=== PATIENT | female | born 1970 | race Caucasian/White ===

== ENCOUNTER 2021-11-16 08:48 | Outpatient (REF) | payer BC, SELFPAY ==
[2021-11-16 10:19] LABS: Binax Internal Control QC Valid; Binax Now Covid-19 Ag Positive (Negative)
== END 2021-11-16 08:49 | disposition home or self-care (01) ==
LOC: HO.LAB 08:48
PROVIDERS: Visit Provider Internal Medicine
DX: Z20.822 Contact with and (suspected) exposure to COVID-19 (principal)
CPT/HCPCS: 36415; C9803

== ENCOUNTER → 2023-08-27 08:01 | Outpatient (BNVA) | payer BC, SELFPAY | PROVIDERS: Visit Provider Physician Assistant Surgical ==

== ENCOUNTER 2023-10-10 14:18 | Outpatient (AMB) | payer BC, SELFPAY ==
--- NOTE | 2023-10-10 14:22 | A.OFFVIS_ITS ---
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 She has a hx of LSG by Dr. James in May 2011. She did develop a postoperative leak requiring readmission to the hospital for approximately 1 week however did not require further intervention. She had persistent reflux and after several endoscopies was found to have a hiatal hernia which was repaired laparoscopically in March of 2022, also by Dr. James. She states that her weight at the time of beginning the [facility] weight Loss program was approximally 235 lb. Operative weight was 225 lb. And she states her lowest weight was 198 lb. Her goal is to lose weight and achieve a healthy lifestyle as well as to improve, if not resolve, obesity related medical conditions, including HLD. She reports first being concerned about her weight 22 years ago, highest weight to date was 235. Current weight is 213.8 pounds with a BMI of 36.7. She has tried multiple methods of weight loss including previous surgery without permanent results. She lives with her daughter. 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 She wakes at:?7 am, and goes to bed at?10 pm or MN if working her second job. Dinner is at meal between 1-4 pm. Breakfast: refresher drink from DD or cereal w fairlife milk, or yogurt AM snack: skip Lunch: yogurt or cereal or SF jello pudding, or RTD 30 gm fairlife shake PM snack: skip Dinner: toast w butter, After dinner: skip Other snacks: cookies candy, chips Liquids: 16 oz water, 12 coke daily, no juice Alcohol/marijuana/tobacco intake: no etoh, no cannabis, no tobacco Exercise: none, no gym membership Treadmill at home. GERD score: 7 LV score: 1 ESS score: 14 QOL score: 77 PFSH Surgical History Hx of colonoscopy History of medial meniscus repair of right knee Hx of hernia repair Hx of laparoscopic partial gastrectomy Family History Mother Colon cancer Father No problems noted. Son No problems noted. Son No problems noted. Daughter No problems noted. Social History Alcohol intake: never Patient Tobacco Use Status: Never used Tobacco Review of Systems Const All systems reviewed & are unremarkable except as noted in HPI and below Physical Exam Const General: cooperative, healthy appearing and no acute distress Orientation/consciousness: patient oriented x3 HEENT Head: Yes normal to inspection Ears: hearing grossly normal bilaterally General nose exam: Normal external nose present Face and sinus: Yes normal facial exam Eyes General: appearance normal, both eyes and all related structures Resp Effort & Inspection: normal respiratory effort Auscultation: clear to auscultation bilaterally Cardio Rate: regular rate Rhythm: regular rhythm Heart sounds: S1 normal heart sound present and S2 normal heart sound present GI Inspection: Yes normal to inspection, No distended and Yes obesity Palpation (GI): Soft to palpation, nontender and no guarding Auscultation: normal bowel sounds Skin General skin exam: no rashes or lesions noted Neuro General: patient oriented x3 Extrem General: No edema Psych Appearance: grossly normal Mental Status: mental status grossly normal Speech and movement: Normal speech and movement present Affect: normal affect Attitude: cooperative Assessment & Plan Assessment & Plan (1) Obesity (BMI 30-39.9): Code(s): E66.9 - Obesity, unspecified Plan: This is a?53 yo female who will start our SWL program to prepare for revision of previous bariatric surgery.? Blood work, h pylori , CXR, ECG, Abd US and UGI have been ordered. She is being scheduled for RD and BH initial consultations. She will start SWL classes and watch the first three videos before her next appointment. ? Adequate sleep of 7-8 hours per night discussed, awakening at 7 am and going to bed around 11 pm ? You stated that you already purchased the body composition scale, so be sure and check weight weekly. The best time to do this is first thing in the morning after going to the bathroom. 1. Nutritional counseling: Be sure to careful read the number of scoops per shake Weekdays (Friday-Friday) Start with 1 celebrate rebuild shake ([facility] [employer], [employer] [place], [employer]), (2 scoops in 20 oz unsweetened almond milk) at 8am-10am 2 Celebrate protein bars ([employer] bars at [facility] [employer], [employer] [place], [employer]) First bar at 11am-1pm Meal at 3pm (7 forks of protein and 7 forks of salad/vegetables). Meal to include lean meat (beef, fish, pork, turkey, chicken), cooked vegetables or a salad with olive oil and/or fruits (berries, pears, apples, kiwi). Avoid salt, breads, potatoes, rice, pasta, desserts. Second bar at 7pm-9pm Weekends (friday and Friday) Shake, 2 scoops in 20 oz unsweetened almond milk at 8am-10am Protein bar at 11am-1pm Another bar at 3pm-5pm Meal at 7 pm (7 forks protein and 7 forks salad or vegetables Drink 64 oz of water daily and avoid soda. ?2. Each shake would be drunk slowly, like coffee in a period of 2 hours. ?3. Cut each bar in 4 pieces and eat each piece in 30 min ?to make each bar last 2 hours. ?4. I emphasized the importance of measuring accurately the food portion and measure it carefully when serving the food on the plate ?5. The meal portions include 7 full-size forks of meat and 7 full-size forks of salad. You always eat the meat portion but you can replace up to half of the forks of salad/vegetables with rice, potatoes or pasta, or a fruit ?if you like. The less you do it the better weight loss will be. ?6. One full-size fork is what can be scooped on the fork without falling aside and not what can be bit with the fork. Use regular forks like those you find in a typical restaurant. ?7.? Please send me weight measurements as soon as possible and then once a week. Always include your diet and exercise plan. Alternatively come weekly at the office for weight checks and send me the measurements. ?8. Exercise counseling: Begin by watching a stretching for beginners video. Start slowly and begin to stretch your muscles. You should do this before and after each exercise session to prevent injury. Please join [employer] gym near your home. Ask the shopping centre manager or one of the trainers how to use the machines if you are unfamiliar with them. Start elliptical with a resistance of 2. Increase resistance by 1 every 3 min to your most comfortable resistance with a max resistance of 8. Reduce the resistance by 1 every 3 minutes back down to 2 and repeat cycles for 300 calories. Alternatively, start treadmill with a speed of 3.0 and incline of 0, increasing incline by 1 every 3 minutes to the highest comfortable level (max 6 for now) then decrease in the same fashion. Repeat process to a goal of 300 calories. Goal of 2000 calories burned or more weekly. You may also consider use of the stationary bike. The easiest would be to chose the fat-burn or interval training program on the machine and do this until you reach the 300 calorie goal. Alternatively, you can manually adjust the resistance in a similar fashion as mentioned above, (resistance of 2-8 with a goal speed of 12 mph). Tracking calories is essential. 9. Alternatively start walking outside daily, tracking calories with a goal of 300 calories per day, daily. You can download the radha [employer] which can track your time, distance and calories while walking outside. You press start in the radha when you start and then stop when you are finished. 10.? It is important to avoid for at least 18 months postoperatively and it has been discussed at the information session 11. Please get labs, EKG and chest X-Ray within 1 week. 12. Discussed and answered all questions regarding?obtained consent to participate in the [facility]?Registry. 13. Please follow the diet plan exactly, without any change. If you do not like something about the plan or you feel hungry, you need to communicate with me so I can help you revise the plan. You should not change the plan yourself. Text me at [phone] 14. Goal is to lose at least 12 pounds in the first month 15. Goal is to lose 10% of your weight before surgery, which is about 21 lbs. Ultimate weight goal: 192 lbs before surgery 16. Please be sure and get the operative reports from your original surgery May 2011 and the hernia repair March 2022 and bring a copy of that to our office. 17. We also discussed your elevated ESS score concerning for possible sleep apnea. We also discussed the risks associated with untreated sleep apnea. I had offered a home sleep study evaluation however you declined. Should you change your mind and wish to pursue this further, please text me to let me know. Patient is morbidly obese and is not considered stable at this time.?I spent a total of 70 minutes reviewing/updating records, examining the patient and counseling the patient on weight management as detailed above. Orders: Orders Hemoglobin A1c Today E66.9 - Obesity, unspecified, E78.00 - Pure hypercholesterolemia, unspecified Comprehensive Met. Panel Today E66.9 - Obesity, unspecified, E78.00 - Pure hypercholesterolemia, unspecified Vitamin B12 and Folate Today E66.9 - Obesity, unspecified, E78.00 - Pure hypercholesterolemia, unspecified Vitamin B1 Today E66.9 - Obesity, unspecified, E78.00 - Pure hypercholesterolemia, unspecified Vitamin A Today E66.9 - Obesity, unspecified, E78.00 - Pure hypercholesterolemia, unspecified TSH reflex Free T4 Today E66.9 - Obesity, unspecified, E78.00 - Pure hypercholesterolemia, unspecified Vitamin D 25-OH Total Today E66.9 - Obesity, unspecified, E78.00 - Pure hypercholesterolemia, unspecified Insulin Today E66.9 - Obesity, unspecified, E78.00 - Pure hypercholesterolemia, unspecified Complete Blood Count Auto Diff Today E66.9 - Obesity, unspecified, E78.00 - Pure hypercholesterolemia, unspecified Lipid Panel Today E66.9 - Obesity, unspecified, E78.00 - Pure hypercholesterolemia, unspecified IRON PROFILE Today E66.9 - Obesity, unspecified, E78.00 - Pure hypercholesterolemia, unspecified Zinc Today E66.9 - Obesity, unspecified, E78.00 - Pure hypercholesterolemia, unspecified C Reactive Protein Today E66.9 - Obesity, unspecified, E78.00 - Pure hypercholesterolemia, unspecified Ferritin Today E66.9 - Obesity, unspecified, E78.00 - Pure hypercholesterolemia, unspecified US abdomen comp w elastography Today E66.9 - Obesity, unspecified, E78.00 - Pure hypercholesterolemia, unspecified XR chest 2V Today E66.9 - Obesity, unspecified, E78.00 - Pure hypercholesterolemia, unspecified ECG 12 lead EKG Today E66.9 - Obesity, unspecified, E78.00 - Pure hypercholesterolemia, unspecified Referrals Nutrition/Dietitian Referral E66.9 - Obesity, unspecified, E78.00 - Pure hypercholesterolemia, unspecified Behavioral Health Referral E66.9 - Obesity, unspecified, E78.00 - Pure hypercholesterolemia, unspecified Coding Level of Care Code New Pt Level 5 (68512) Diagnoses Obesity (BMI 30-39.9) E66.9 Time Spent (min) 70
[2023-10-10 14:34] VITALS: BP 160/78; PULSE 96; TEMP 36.1; O2SAT 97; BMI 36.7
== END 2023-10-10 15:55 | disposition home or self-care (01) ==
PROVIDERS: Visit Provider Physician Assistant Surgical
DX: E66.9 Obesity, unspecified (principal); Z68.41 Body mass index [BMI] 40.0-44.9, adult
CPT/HCPCS: 99205

== ENCOUNTER → 2023-10-10 14:18 | Outpatient (BNVA) | payer BC, SELFPAY | PROVIDERS: Visit Provider Physician Assistant Surgical ==

== ENCOUNTER 2023-10-17 08:20 | Outpatient (REF) | payer BC, OTHER, SELFPAY ==
--- NOTE | ~2023-10-17 | XR_ITS ---
EXAMINATION: XR CHEST CLINICAL INFORMATION: Obesity COMPARISON: None available. TECHNIQUE: 2 views of the chest were obtained. FINDINGS: Cardiac silhouette is normal in size. The lungs are mildly hypoinflated. There is no lobar consolidation. No pleural effusion or pneumothorax. Minimal degenerative changes of the spine. XR/XR chest 2V IMPRESSION: No acute pulmonary pathology.
[2023-10-17 09:00] LABS: MANUAL DIFF FLAG NO
--- NOTE | 2023-10-17 09:08 | ECG_ITS ---
Test Reason : E66.9 - Obesity, unspecified Blood Pressure : / mmHG Vent. Rate : 078 BPM Atrial Rate : 078 BPM P-R Int : 148 ms QRS Dur : 082 ms QT Int : 372 ms P-R-T Axes : 024 -01 -03 degrees QTc Int : 424 ms Normal sinus rhythm Cannot exclude old inferior infarct, but can be normal variant. Abnormal ECG No previous ECGs available Referred By: Bar Carcamo Electronically Signed By:HERLINDA WILL
[2023-10-17 10:00] LABS: Basophils Absolute Auto 0.1 X10*3/uL (0.0-0.2); Basophils Percent Auto 1.2 % (0-2); Eosinophils Absolute Auto 0.5 X10*3/uL (0.0-0.4); Eosinophils Percent Auto 6.2 % (0-4); Hematocrit 41.7 % (37.0-47.0); Imm Gran Abs Auto 0.04 X10*3/uL (0.00-0.03); Imm Gran Pct Auto 0.5 % (0.0-0.4); Lymphocytes Percent Auto 23.4 % (20-40); Mean Corpuscular HGB Conc 33.6 g/dl (31.0-35.0); Mean Corpuscular Hemoglobin 27.6 pg (27.0-33.0); Mean Corpuscular Volume 82.2 fL (80.0-98.0); Mean Platelet Volume 10.1 fL (9.4-12.3); Monocytes Absolute Auto 0.7 X10*3/uL (0.1-1.2); Monocytes Percent Auto 8.5 % (2-11); Neutrophils Absolute Auto 5.2 x10*3/uL (2.0-8.3); Neutrophils Percent Auto 60.2 % (45-73); Platelet Count 282 X10*3/uL (160-400); Red Blood Count 5.07 X10*6/uL (4.20-5.50); Red Cell Distribution Width 13.1 % (11.0-16.0); White Blood Count 8.6 X10*3/uL (4.8-10.8)
[2023-10-17 10:09] LABS: Estimated Average Glucose 134 mg/dL; Hemoglobin A1c % 6.3 % (<6.0)
[2023-10-17 11:15] LABS: Alanine Aminotransferase 35 U/L (0-31); Alkaline Phosphatase 103 U/L (39-117); Anion Gap 11 (12-20); Aspartate Amino Transferase 36 U/L (5-31); Bilirubin Total 0.9 mg/dL (0.0-1.0); Blood Urea Nitrogen 14 mg/dL (9-16); Calcium 9.3 mg/dL (8.4-10.2); Carbon Dioxide 28 mmol/L (22-29); Chloride 105 mmol/L (96-108); Cholesterol 224 mg/dL (<200); Estimated Glomerular Filt Rate > 60; Glucose Random 99 mg/dL (60-115); HDL Cholesterol 38 mg/dL (>40); Iron 108 mcg/dL (30-160); LDL Cholesterol Calculated 157 mg/dL (<100); Percent Iron Saturation 33 % (15-50); Sodium 140 mmol/L (135-145); Total Iron Binding Capacity 323 mcg/dL (228-428); Total Protein 7.5 g/dL (6.5-8.0); Triglycerides 145 mg/dL (<150); Unsaturated Iron Binding 215 ug/dL
[2023-10-17 11:19] LABS: Ferritin 70 ng/mL (10-250); Insulin 12 uU/mL (2-29); TSH reflex Free T4 1.05 uIU/mL (0.32-4.0); Vitamin D 25-OH Total 29.1 ng/mL (>30)
[2023-10-17 11:23] LABS: Folate 8.4 ng/mL (> or = 4.0); Vitamin B12 654 pg/mL (200-900)
[2023-10-20 19:03] LABS: Zinc 63 mcg/dL (60-130)
[2023-10-21 22:08] LABS: Vitamin A 48 mcg/dL (38-98)
[2023-10-23 14:19] LABS: Vitamin B1 10 nmol/L (8-30)
== END 2023-10-17 08:21 | disposition home or self-care (01) ==
LOC: HO.LAB 08:20
PROVIDERS: PCP Nurse Practitioner Family; Visit Provider Physician Assistant Surgical
DX: E66.9 Obesity, unspecified (principal); E78.00 Pure hypercholesterolemia, unspecified
CPT/HCPCS: 36415; 71046; 80053; 80061; 82306; 82607; 82728; 82746; 83036; 83525; 83540; 84425; 84443; 84590; 84630; 85025; 86140; 93005

== ENCOUNTER → 2023-10-17 09:08 | Outpatient (BNV) | payer OTHER, BC, SELFPAY | PROVIDERS: PCP Nurse Practitioner Family; Visit Provider Internal Medicine | DX: R94.31 Abnormal electrocardiogram [ECG] [EKG] (principal) | CPT/HCPCS: 93010 ==

== ENCOUNTER 2023-10-22 08:53 | Outpatient (AMB) | payer OTHER, BC, SELFPAY ==
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
== END 2023-10-22 09:05 | disposition home or self-care (01) ==
LOC: HO.HBS 08:53
PROVIDERS: PCP Nurse Practitioner Family; Visit Provider Dietitian, Registered
DX: E66.9 Obesity, unspecified (principal)

== ENCOUNTER → 2023-10-22 08:53 | Outpatient (BNVA) | payer BC, OTHER, SELFPAY | PROVIDERS: PCP Nurse Practitioner Family; Visit Provider Dietitian, Registered | DX: E66.9 Obesity, unspecified (principal); Z71.3 Dietary counseling and surveillance | CPT/HCPCS: 97802 ==

== ENCOUNTER → 2023-11-11 08:32 | Outpatient (REF) | payer BC, OTHER, SELFPAY ==
--- NOTE | 2023-11-11 08:35 | CA_ITS ---
Acquisition Time: 2023-11-11 08:45:30 Total Exercise Time: 00:05:59 Test Indications: ABN EKG Medications: SEE H Protocol: SOURAV Max HR: 150 BPM 88% of Pred: 169 BPM Max BP: 148/072 mmHG Max Work Load: 7.0 METS Exercise stress test exercise 5 min 59 sec of Sourav protocol achieving 88% MPHR, without anginal symptoms, without arrhythmias, with normotensive response to exercise, without EKG changes. Test reviewed with Dr. Bender. Referred By: Bar Carcamo Overread By: Delia Dawn
== END ==
LOC: HO.CARD 08:32
PROVIDERS: PCP Nurse Practitioner Family; Visit Provider Physician Assistant Surgical
DX: R94.31 Abnormal electrocardiogram [ECG] [EKG] (principal)
CPT/HCPCS: 93017

== ENCOUNTER → 2023-11-11 08:35 | Outpatient (BNV) | payer BC, OTHER, SELFPAY | PROVIDERS: PCP Nurse Practitioner Family; Visit Provider Nurse Practitioner | DX: R94.31 Abnormal electrocardiogram [ECG] [EKG] (principal) | CPT/HCPCS: 93016; 93018 ==

== ENCOUNTER 2023-11-18 08:59 | Outpatient (REF) | payer BC, OTHER, SELFPAY ==
--- NOTE | ~2023-11-18 | US_ITS ---
EXAMINATION: US COMPLETE ABDOMEN WITH LIVER ELASTOGRAPHY CLINICAL INFORMATION: Obesity. COMPARISON: None available. TECHNIQUE: Real-time imaging of the abdominal viscera. Noninvasive ultrasound liver fibrosis assessment is performed using Jada ElastPQ point quantification shear wave elastography (2D-SWE) with a C5-2 MHz transducer. Multiple elastography samples are obtained. FINDINGS: PANCREAS: Limited. The visualized pancreatic head and body are normal in appearance. The remainder of the pancreas is obscured from visualization by the overlying bowel gas. ABDOMINAL AORTA: The visualized proximal, middle, and distal aortic segments are normal in caliber. INFERIOR VENA CAVA: Visualized portions are normal. LIVER: There is hepatomegaly. The liver demonstrates normal contour and increased echogenicity, with pericholecystic sparing. No focal lesion or intrahepatic biliary duct dilatation. The right lobe measures 18.2 cm in length. The left lobe measures 11.1 cm in length. Portal flow is towards the liver (hepatopetal). Shear wave liver elastography median stiffness is 1.44 m/s (reference: normal median stiffness is 1.3 m/s or less). IQR/median stiffness to assess sampling precision is 0.18 (reference: good quality data set is IQR/median stiffness of 0.15 or less). GALLBLADDER: Normal. The gallbladder is physiologically distended without evidence of stones, sludge, polyps, wall thickening or pericholecystic fluid. COMMON BILE DUCT: Normal in caliber measuring 0.4 cm in diameter. RIGHT KIDNEY: Normal. No hydronephrosis. No renal calculi or focal parenchymal lesions. The kidney measures 10.2 cm in maximum dimension. LEFT KIDNEY: Normal. No hydronephrosis. No renal calculi or focal parenchymal lesions. The kidney measures 11.0 cm in maximum dimension. SPLEEN: Normal. The spleen measures 11.1 cm in maximum dimension. FREE FLUID: None. US/US abdomen comp w elastography IMPRESSION: 1. There is generalized increase in hepatic echotexture, consistent with fatty infiltration or hepatocellular disease. Please correlate clinically. Characteristic pericholecystic sparing favors fatty infiltration. No focal hepatic mass or intrahepatic biliary dilatation is seen. 2. There is hepatomegaly. 3. Liver elastography: Although measurements appear to rule out compensated advanced chronic liver disease, there is statistical variability of the sampling which decreases accuracy. 4. Technically limited ultrasound examination of the pancreas and abdominal great vessels. REFERENCE: Society of Radiologists in Ultrasound Liver Stiffness Thresholds (2020): LIVER STIFFNESS THRESHOLDS: *Liver Stiffness equal or less than 1.3 m/s: High probability of being normal. *Liver Stiffness less than 1.7 m/s: In the absence of other known clinical signs, rules out compensated advanced chronic liver disease. *Liver Stiffness 1.7-2.1 m/s: Suggestive of compensated advanced chronic liver disease but need further test for confirmation. *Liver Stiffness over 2.1 m/s: Rules in compensated advanced chronic liver disease. *Liver Stiffness over 2.4 m/s: Suggestive of clinically significant portal hypertension. QUALITY OF DATA SET: *IQR/Median value equal or less than 0.15 implies a quality data set. *IQR/Median value over 0.15 implies a poor quality data set. SIGNIFICANT CHANGE FROM PRIOR EXAM: Significant change if liver stiffness measurement is 10% or greater from prior exam. OTHER CONSIDERATIONS: The stage of liver fibrosis may be overestimated in the setting of acute hepatitis, liver inflammation, elevated liver function tests, hepatic vascular congestion, obstructive cholestasis, non-fasting state, and infiltrative diseases such as amyloidosis and lymphoma. In some patients with NAFLD, the liver stiffness thresholds for compensated advanced chronic liver disease may be lower. In causes other than viral hepatitis and NAFLD, liver stiffness thresholds are not well established.
== END 2023-11-18 09:00 | disposition home or self-care (01) ==
LOC: HO.US 08:59
PROVIDERS: PCP Nurse Practitioner Family; Visit Provider Physician Assistant Surgical
DX: E66.9 Obesity, unspecified (principal); E78.00 Pure hypercholesterolemia, unspecified
CPT/HCPCS: 76705; 76981

== ENCOUNTER 2023-12-12 15:35 | Outpatient (AMB) | payer BC, OTHER, SELFPAY ==
--- NOTE | 2023-12-12 14:44 | A.OFFVIS_ITS ---
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 She has a hx of LSG by Dr. James in May 2011. She did develop a postoperative leak requiring readmission to the hospital for approximately 1 week however did not require further intervention. She had persistent reflux and after several endoscopies was found to have a hiatal hernia which was repaired laparoscopically in March of 2022, also by Dr. James. She states that her weight at the time of beginning the [facility] weight Loss program was approximately 235 lb. Operative weight was 225 lb. And she states her lowest weight was 198 lb. They were last seen in the office on 10/10/2023, recorded weight at that time was to 213.8 pounds, with a BMI of 36.7. Patient has not weighed herself in several weeks. She reports her last weight was 211 lb Pre op work up completed as follows: SWL classes:? [] appts: 11/25/2023 ? ? RD appts: Follow-up was 11/21/2023 Labs: 10/17/2023-low D, A1c: 6.3 H. pylori: Not yet done CXR: 10/17/2023-no active disease EK10/17/2023-can not exclude old inferior infarct, 11/11/2023-stress test n ormal ABD U/S: 11/18/2023-fatty liver UGI: Not yet done The patient reports she has been following the meal plan but was not following during the holiday season. She states she had a lot of fruits last week and just re-started her meal plan this week. She states she does not do the second bar 2-3 days of the week. She skips the second bar 1 of the 2 days of the weekend. The patient does have a body composition scale. They also have not been communicating weekly. Current meal plan includes: Weekdays (Friday-Friday) Start with 1 celebrate rebuild shake ([facility] [employer], [employer] tevitamins[employer], [employer]), (2 scoops in 20 oz unsweetened almond milk) at 8am- 10am 2 Celebrate protein bars (Celebrate bars at [facility] [employer] [employer], [employer], [employer], [employer]) First bar at 11am-1pm Meal at 3pm (7 forks of protein and 7 forks of salad/vegetables). Second bar at 7pm-9pm Weekends (friday and Friday) Shake, 2 scoops in 20 oz unsweetened almond milk at 8am-10am Protein bar at 11am-1pm Another bar at 3pm-5pm Meal at 7 pm (7 forks protein and 7 forks salad or vegetables Drink 64 oz of water daily Current exercise plan includes: has treadmill at home nothing as she cannot afford a gym membership and works 2 jobs 3 days per week PFSH Surgical History Hx of colonoscopy History of medial meniscus repair of right knee Hx of hernia repair Hx of laparoscopic partial gastrectomy Family History Mother Colon cancer Father No problems noted. Son No problems noted. Son No problems noted. Daughter No problems noted. Social History Alcohol intake: never Patient Tobacco Use Status: Never used Tobacco Assessment & Plan Assessment & Plan (1) Obesity (BMI 30-39.9): Code(s): E66.9 - Obesity, unspecified Plan: Discussed the importance weighing herself weekly and communicating by text to me weekly. She has not been exercising and we discussed multiple options including videos at home, joining the [facility] with a discount from our office, trying to identify if [facility] [employer] (where she works) has a gym available to employees. She was again encouraged to track her calories with a goal of 2000 calories burned per week. She will adhere to the meal plan and return to the office in 3 or 4 weeks. We also discussed follow-up appointments with Vesta and Alana as well as scheduling H pylori breath test and abdominal ultrasound. We also discussed again, the need for records from her original surgery in 2010 and hiatal hernia repair in 2021. Telehealth Telehealth Location of provider rendering services: practice address Location of patient: address on file Patient Identification confirmed using: Name, : Yes Telehealth method: voice only Patient verbally consented to treatment: Yes Patient verbally consented to billing insurance company: Yes Patient informed of any privacy concerns related to visit: Yes Minutes spent on Phone/Video with Pt.: 20 Coding Level of Care Code Tele Est Pt Level 3 (93859) Diagnoses Obesity (BMI 30-39.9) E66.9 Time Spent (min) 25
== END 2023-12-12 16:07 | disposition home or self-care (01) ==
LOC: HO.HBS 15:35
PROVIDERS: PCP Nurse Practitioner Family; Visit Provider Physician Assistant Surgical
DX: E66.9 Obesity, unspecified (principal)
CPT/HCPCS: 99213

== ENCOUNTER → 2023-12-12 15:35 | Outpatient (BNVA) | payer OTHER, BC, SELFPAY | PROVIDERS: PCP Nurse Practitioner Family; Visit Provider Physician Assistant Surgical ==

== ENCOUNTER 2023-12-23 09:09 | Outpatient (AMB) | payer OTHER, BC, SELFPAY ==
--- NOTE | 2023-12-23 09:02 | A.OFFVIS_ITS ---
Intake Intake Visit Reasons: (TV) F/U SWL Allergies TRAMADOL Allergy (Mild, Uncoded 08/27/23 08:14) RASH HPI Nutrition Presentation Details Patient is seeking a - 2010 LSG Reason for consult elevated BMI Diet Assmnt Details Pt states she has been following her plan for 1 week now. Prior to that reports with holidays she did not attempt to change eating habits. Needs different protein shakes/bars because [facility] We discussed her ability to stick to healthy habits nursing home and how to make sustainable changes. Exercise: just bought a new treadmill, Nutrition classes: not completed Previous weight loss methods attempted She has a hx of LSG by Dr. James in May 2011. She did develop a postoperative leak requiring readmission to the hospital for approximately 1 week however did not require further intervention. She had persistent reflux and after several endoscopies was found to have a hiatal hernia which was repaired laparoscopically in March of 2022, also by Dr. James. She states that her weight at the time of beginning the [facility] weight Loss program was approximally 235 lb. Operative weight was 225 lb. And she states her lowest weight was 198 lb. She reports first being concerned about her weight 22 years ago, highest weight to date was 235. Dietary counseling reduction Who buys your food self Who prepares/cooks your food self Meal frequency regular: breakfast (DD refresher and 1-2 donuts ), lunch (yogurt (ratio) or cereal honeynut cheerios with fairlife milk) and dinner Diagnosis Nutrition problem #1 overweight/obesity As related to (etiology) #1 excess energy intake and physical inactivity As evidenced by (sign/symptom) #1 high BMI Monitoring/Goals Nutrition problem monitoring total energy intake, level of knowledge/skill, total PRO intake, weight and oral fluids Outcome progress progressing Learning/Education Readiness to learn excellent Stages of change action Educational materials provided Yes Most Recent Diabetes Results: Cholesterol 224 mg/dL (<200) H 10/17/23 HDL Cholesterol 38 mg/dL (>40) L 10/17/23 Triglycerides 145 mg/dL (<150) 10/17/23 Creatinine 0.82 mg/dL (0.5-1.4) 10/17/23 Blood Urea Nitrogen 14 mg/dL (9-16) 10/17/23 Sodium 140 mmol/L (135-145) 10/17/23 Potassium 4.0 mmol/L (3.3-5.1) 10/17/23 Chloride 105 mmol/L (96-108) 10/17/23 Carbon Dioxide 28 mmol/L (22-29) 10/17/23 Calcium 9.3 mg/dL (8.4-10.2) 10/17/23 AST 36 U/L (5-31) H 10/17/23 ALT 35 U/L (0-31) H 10/17/23 Total Protein 7.5 g/dL (6.5-8.0) 10/17/23 Albumin 4.0 g/dL (3.5-5.0) 10/17/23 PFSH Surgical History Hx of colonoscopy History of medial meniscus repair of right knee Hx of hernia repair Hx of laparoscopic partial gastrectomy Family History Mother Colon cancer Father No problems noted. Son No problems noted. Son No problems noted. Daughter No problems noted. Social History Alcohol intake: never Patient Tobacco Use Status: Never used Tobacco Assessment & Plan Assessment & Plan (1) Obesity (BMI 30-39.9): Code(s): E66.9 - Obesity, unspecified Plan encouraged she discuss with PA option for different products that are more accessible to her. Will be seen again once she completes online classes. Will need to demonstrate ability to stick to healthy habits for an extended period of time Telehealth Telehealth Location of provider rendering services: other (home address [facility] ) Location of patient: address on file Patient Identification confirmed using: Name, : Yes Telehealth method: voice only Patient verbally consented to treatment: Yes Patient verbally consented to billing insurance company: Yes Patient informed of any privacy concerns related to visit: Yes Minutes spent on Phone/Video with Pt.: 20 Coding Level of Care Code Nutr Indiv Subseq (05251) Diagnoses Obesity (BMI 30-39.9) E66.9 Time Spent (min) 20
== END 2023-12-23 09:13 | disposition home or self-care (01) ==
LOC: HO.HBS 09:09
PROVIDERS: PCP Nurse Practitioner Family; Visit Provider Dietitian, Registered
DX: E66.9 Obesity, unspecified (principal)

== ENCOUNTER → 2023-12-23 09:09 | Outpatient (BNVA) | payer BC, OTHER, SELFPAY | PROVIDERS: PCP Nurse Practitioner Family; Visit Provider Dietitian, Registered | DX: E66.9 Obesity, unspecified (principal); Z71.3 Dietary counseling and surveillance | CPT/HCPCS: 97803 ==

== ENCOUNTER 2023-12-30 09:18 | Outpatient (AMB) | payer BC, OTHER, SELFPAY ==
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
== END 2023-12-30 11:04 | disposition home or self-care (01) ==
LOC: HO.HBST 09:18
PROVIDERS: PCP Nurse Practitioner Family; Visit Provider Counselor Mental Health
DX: F41.1 Generalized anxiety disorder (principal); F32.9 Major depressive disorder, single episode, unspecified; E66.9 Obesity, unspecified
CPT/HCPCS: 90791

== ENCOUNTER → 2023-12-30 09:18 | Outpatient (BNVA) | payer OTHER, BC, SELFPAY | PROVIDERS: PCP Nurse Practitioner Family; Visit Provider Counselor Mental Health ==

== ENCOUNTER 2024-01-07 07:52 | Outpatient (REF) | payer OTHER, BC, SELFPAY ==
[2024-01-08 11:43] LABS: H Pylori Breath Test Negative (Negative)
== END 2024-01-07 07:53 | disposition home or self-care (01) ==
LOC: HO.LNP 07:52
PROVIDERS: PCP Nurse Practitioner Family; Visit Provider Physician Assistant Surgical
DX: Z01.818 Encounter for other preprocedural examination (principal)
CPT/HCPCS: 83013; 99211